=== PATIENT | male | born 1990 | race Caucasian/White ===

== ENCOUNTER 2016-11-19 13:14 | Emergency (ER) | payer MEDICARE, MEDICAID ==
[~2016-11-19] VITALS: Ht 177.8 cm; Wt 66.8 kg
[~2016-11-19 13:14] MED LIST: CLON0.1T14 PO; [UNRECOGNIZED DRUG - CODE] PO
[2016-11-19 13:33] VITALS: BP 90/61
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
== END 2016-11-19 14:19 | disposition home or self-care (01) ==
LOC: SED 13:14
DX: I95.9 Hypotension, unspecified (principal)